=== PATIENT | female | born 1940 | race Caucasian/White ===

== ENCOUNTER 2017-10-16 09:11 | Emergency (ER) | payer OTHER, BC ==
[2017-10-16 09:28] VITALS: TEMP 97.8; BMI 26.5
--- NOTE | 2017-10-16 10:16 | PDOC ---
History of Present Illness - General Chief Complaint: Chest Pain Stated Complaint: PCP SENT Time Seen by Provider: 10/16/17 09:30 - History of Present Illness Initial Comments: 10/16/17 10:13 Patient is a 77 year old female with a PMH of CAD (s/p [place] with stent in LAD), HTN, Aortic valve replacement, HLD and hypothyroidism who presents with resolved chest pain. Chest pain started two days previous and was L sided, non- radiating, 10/10 and non-qualifiable. Patient took her medication (unsure what medication) and states pain resolved in 2-3 hours and has not returned since that time. No prior h/o similar pain and notes she was dancing the evening before the pain started with lots of raised arm movements. Denies any associated dyspnea, lightheadedness, diaphoresis, palpitations. Patient's funeral director's assistant is Dr. Arauz. Patient denies chest pain, headache or dizziness. Patient denies fever, chills, abdominal pain, nausea, vomit, diarrhea or constipation. Patient denies dysuria, frequency, urgency or hematuria. Patient denies sick contacts or recent travel. Allergy: Metronizadole, Penicillin Surgical: Hysterectomy, Aortic Valve replacement, Stent in LAD, Appendicitis Social: denies nicotine, denies alcohol, denies recreational drugs Past History - Past Medical History Allergies/Adverse Reactions: Allergies Allergy/AdvReac Type Severity Reaction Status Date / Time metronidazole [From Flagyl] Allergy Verified 10/16/17 09:21 Penicillins Allergy Verified 10/16/17 09:21 Home Medications: Ambulatory Orders Amlodipine/Valsartan [Exforge 5-160 mg Tablet] 1 tab PO DAILY 08/26/14 Aspirin [ASA -] 81 mg PO DAILY 08/26/14 Clopidogrel Bisulfate [Plavix -] 75 mg PO DAILY 08/26/14 Lansoprazole [Prevacid -] 30 mg PO DAILY 08/26/14 Propylthiouracil 50 mg PO DAILY 08/26/14 Rosuvastatin Calcium [Crestor] 20 mg PO HS 08/26/14 Cardiac Disorders: Yes (Aortic Valve) COPD: No DVT: No HTN: Yes Hypercholesterolemia: Yes - Surgical History Cardiac Surgery: Yes (AORTIC VALVE) Cholecystectomy: Yes - Immunization History Immunization Up to Date: No - Suicide/Smoking/Psychosocial Hx Smoking History: Never smoked Have you smoked in the past 12 months: No Information on smoking cessation initiated: No Hx Alcohol Use: No Drug/Substance Use Hx: No Review of Systems - Review of Systems Constitutional: No: Chills, Fever HEENTM: No: Recent change in vision Respiratory: No: Orthopnea, Shortness of Breath Cardiac (ROS): Yes: Chest Pain (resolved). No: Lightheadedness, Palpitations ABD/GI: No: Constipated, Diarrhea, Nausea, Vomiting : No: Burning, Dysuria *Physical Exam - Vital Signs Last Vital Signs Temp Pulse Resp BP Pulse Ox 97.8 F 67 18 122/84 95 10/16/17 09:21 10/16/17 09:21 10/16/17 09:21 10/16/17 09:21 10/16/17 09:21 - Physical Exam General Appearance: Yes: Nourished, Appropriately Dressed HEENT: positive: EOMI, SONIDO Neck: positive: Trachea midline, Supple Respiratory/Chest: positive: Lungs Clear Cardiovascular: positive: S1, S2. negative: Edema, JVD Gastrointestinal/Abdominal: positive: Normal Bowel Sounds, Soft Musculoskeletal: negative: CVA Tenderness (R), CVA Tenderness (L) Extremity: positive: Normal Capillary Refill, Normal Inspection Integumentary: positive: Normal Color, Dry, Warm ED Treatment Course - LABORATORY CBC & Chemistry Diagram: 10/16/17 10:07 10/16/17 10:07 Medical Decision Making - Medical Decision Making 10/16/17 10:24 77 year old female presents with resolved L sided chest pain. Frontal diagnosis : r/o ACS, costochondritis, pericarditis.Will obtain basic labs, Troponin, ECG. Reassess. 10/16/17 11:35 ECG shows NSR HR 72, no deviations, normal intervals, T wave flattening in V1 with no MELIZA/STD, non-ischemic ECG. T wave flattening not c/w prior ECG. Troponin (-) x1. CBC, CMP unremarkable TSH wnL. At this time patient continues to remain chest pain free > 72 hours. Case d/w Dr. Neff, patient's son - will discharge patient home with return precautions and PMD follow-up. *DC/Admit/Observation/Transfer Diagnosis at time of Disposition: Chest pain - Discharge Dispostion Disposition: HOME Condition at time of disposition: Good Admit: No - Referrals Referrals: Leanne Neff MD [Primary Care Provider] - - Patient Instructions Printed Discharge Instructions: DI for Atypical Chest Pain Additional Instructions: You were evaluated today for chest pain. An ECG, Chest Xray and your labs showed no concerning findings. Please follow up with your primary care doctor in the next 24 hours. Return to the Emergency Department for any new/worsening/concerning symptom. - Post Discharge Activity
[2017-10-16 10:26] LABS: EOS % 3.3 % (0-4.5); HEMATOCRIT 37.6 % (32.4-45.2); HEMOGLOBIN 12.6 GM/dL (10.7-15.3); LYMPH % 32.3 % (8-40); MCH 26.4 pg (25.7-33.7); MCHC 33.4 g/dl (32.0-36.0); MEAN PLT VOLUME 9.5 fl (7.5-11.1); MONO % 7.6 % (3.8-10.2); NEUT % 55.8 % (42.8-82.8); PLATELET COUNT 183 K/MM3 (134-434); RBC 4.76 M/mm3 (3.60-5.2); RDW 14.2 % (11.6-15.6); WHITE BLOOD COUNT 4.2 K/mm3 (4.0-10.0)
[2017-10-16 10:33] LABS: INR 1.07 (0.82-1.09); PROTHROMBIN TIME (PATIENT) 12.1 SEC (9.7-13.0)
[2017-10-16 10:36] LABS: ACTIVATED PTT 26.6 SECONDS (26.9-34.4)
[2017-10-16 10:45] LABS: ALBUMIN 3.9 g/dl (3.4-5.0); ANION GAP 3 (8-16); BILIRUBIN,TOTAL 0.3 mg/dL (0.2-1.0); BLOOD UREA NITROGEN 18 mg/dL (7-18); CALCIUM 8.5 mg/dL (8.5-10.1); CHLORIDE 110 mmol/L (98-107); CO2 30 mmol/L (21-32); CREATININE 0.7 mg/dL (0.55-1.02); GLUCOSE,RANDOM 88 mg/dL (74-106); SGPT/ALT 8 U/L (12-78); SODIUM 143 mmol/L (136-145); TOT PROT 6.5 g/dl (6.4-8.2)
[2017-10-16 10:54] LABS: ALK PHOS 36 U/L (45-117); MAGNESIUM 2.3 mg/dL (1.8-2.4); N-TERMINAL BNP 411.45 pg/ml (5-450); POTASSIUM 4.7 mmol/L (3.5-5.1); SGOT/AST 21 U/L (15-37)
--- NOTE | 2017-10-16 11:29 | PDOC ---
Attending Attestation - Resident Resident Name: Pat Gallardo - ED Attending Attestation I have performed the following: I have examined & evaluated the patient, The case was reviewed & discussed with the resident, I agree w/resident's findings & plan, Exceptions are as noted - HPI HPI: 10/16/17 11:29 Ms Neff is a 77 yo F who presents to the ER with a complaint of chest pain which began s/p dancing and extending her arms She was sent to the ER by her son for labs Pt states her pain began after dancing Pain is worse with palpation of the chest wall No shortness of breath no exertional symptoms No nausea or diaphoresis - Physicial Exam PE: 10/16/17 11:29 GENERAL: The patient is in no acute distress. NECK: Normal range of motion, supple without JVD LUNGS: Breath sounds equal, clear to auscultation bilaterally. No wheezes, and no crackles. HEART:Regular rate and rhythm, normal S1 and S2 without murmur, rub or gallop. ABDOMEN: Soft, nontender EXTREMITIES: Normal range of motion, no edema. NEUROLOGICAL: Cranial nerves II through XII grossly intact. Normal speech. No focal neurological deficits. - Medical Decision Making 10/16/17 11:43 Pt presents to ER with a complaint of chest wall pain Labs sent 10/16/17 11:45 Laboratory Tests 10/16/17 10:07 Creatine Kinase 123 Troponin I < 0.02 B-Natriuretic Peptide 411.45 TSH 0.29 L EKG: Normal sinus rhythm, rate of 72 bpm, axis is normal, intervals are normal, no ST elevations or depressions, T waves upright Pt states she feels well will discharge to home Clinical impression: chest wall pain, initial presentation
[2017-10-16 11:52] VITALS: BP 132/76; PULSE 69
--- NOTE | 2017-10-20 10:37 | EKG ---
Test Reason : Blood Pressure : / mmHG Vent. Rate : 072 BPM Atrial Rate : 072 BPM P-R Int : 156 ms QRS Dur : 076 ms QT Int : 424 ms P-R-T Axes : -09 -15 014 degrees QTc Int : 464 ms NORMAL SINUS RHYTHM NORMAL ECG WHEN COMPARED WITH ECG OF 19-OCT-2015 00:21, NONSPECIFIC T WAVE ABNORMALITY NO LONGER EVIDENT IN LATERAL LEADS Confirmed by TEQUILA WELLS, ROLANDO ([id number]) on 10/20/2017 10:36:43 AM Referred By: Confirmed By:ROLANDO MANDEL MD
== END 2017-10-16 11:52 | disposition home or self-care (01) ==
LOC: JER 09:11
DX: R07.89 Other chest pain (principal); I25.10 Atherosclerotic heart disease of native coronary artery without angina pectoris; I10 Essential (primary) hypertension; Z95.5 Presence of coronary angioplasty implant and graft; I25.2 Old myocardial infarction
CPT/HCPCS: 36415; 71045-TC-FY; 80053; 82550; 83735; 83880; 84443; 84484; 85025; 85610; 85730; 93005; 93010; 99283-25

== ENCOUNTER 2021-01-16 19:03 | Emergency (ER) | payer OTHER, BC ==
[2021-01-16 19:16] VITALS: TEMP 98.2; BMI 29.2
[2021-01-16] MEDS ORDERED: LACTATED RINGERS SOLUTION 1000 ML INFUS.BAG IV ONE (19:59)
[2021-01-16] MEDS ORDERED: FAMOTIDINE 20 MG/50 ML IVPB 20 MG/50 ML MG IVPB ONE ×2 (19:59→20:08)
[2021-01-16] MEDS ORDERED: MAG HYDROX/AL HYDROX/SIMETH 30 ML UNIT-DOSE CUP PO ONE (20:01)
[2021-01-16] MEDS ORDERED: MAG HYDROX/AL HYDROX/SIMETH 30 ML UNIT-DOSE CUP ONE (20:08)
[2021-01-16 20:32] LABS: BASO % 0.8 % (0-2.0); HEMATOCRIT 38.3 % (32.4-45.2); HEMOGLOBIN 12.6 GM/dL (10.7-15.3); LYMPH % 17.6 % (8-40); MCH 26.2 pg (25.7-33.7); MCHC 32.8 g/dl (32.0-36.0); MEAN CELL VOLUME 79.8 fl (80-96); MEAN PLT VOLUME 9.3 fl (7.5-11.1); NEUT % 73.6 % (42.8-82.8); PLATELET COUNT 189 10^3/uL (134-434); RDW 13.1 % (11.6-15.6); WHITE BLOOD COUNT 5.6 K/mm3 (4.0-10.0)
[2021-01-16 20:42] LABS: CHLORIDE 103 mmol/L (98-107); SODIUM 138 mmol/L (136-145)
[2021-01-16 20:44] LABS: CALCIUM 9.1 mg/dL (8.5-10.1)
[2021-01-16 20:45] LABS: ALBUMIN 3.8 g/dl (3.4-5.0); ANION GAP 9 MMOL/L (8-16); BLOOD UREA NITROGEN 21.6 mg/dL (7-18); CO2 26 mmol/L (21-32); GLUCOSE,RANDOM 100 mg/dL (74-106); INR 1.03 (0.83-1.09); LIPASE 159 U/L (73-393); MAGNESIUM 2.3 mg/dL (1.8-2.4); PROTHROMBIN TIME (PATIENT) 12.5 SEC (9.7-13.0)
[2021-01-16] MEDS ORDERED: amLODIPine BESYLATE 5 MG TABLET (FP) PO ONE (20:46)
[2021-01-16 20:47] LABS: EPI CELLS 8 /uL (0-25.1); HYALINE CASTS 1 /uL (0-3.1); URINE APPEARANCE CLEAR; URINE BACTERIA 308 /uL (0-1359); URINE BILIRUBIN NEGATIVE (NEGATIVE); URINE COLOR YELLOW; URINE GLUCOSE (UA) NEGATIVE (NEGATIVE); URINE KETONE NEGATIVE (NEGATIVE); URINE LEUK ESTERASE 2+ (NEGATIVE); URINE NITRITE NEGATIVE (NEGATIVE); URINE PROTEIN TRACE (NEGATIVE); URINE RBC 24 /uL (0-23.9); URINE UROBILINOGEN 0.2 mg/dL (0.2-1.0); URINE WBC 71 /uL (0-25.8)
[2021-01-16 20:47] LABS: ACTIVATED PTT 28.3 SECONDS (25.2-36.5)
[2021-01-16 20:48] LABS: CREATININE 0.8 mg/dL (0.55-1.3); SGOT/AST 17 U/L (15-37); SGPT/ALT 16 U/L (13-61)
[2021-01-16 20:49] LABS: BILIRUBIN,TOTAL 0.3 mg/dL (0.2-1); TOT PROT 6.9 g/dl (6.4-8.2)
[2021-01-16 20:50] LABS: ALK PHOS 42 U/L (45-117)
[2021-01-16] MEDS ORDERED: NITROFURANTOIN MACROCRYSTAL 50 MG CAPSULE (FP) PO SCH (21:45)
[2021-01-16 23:09] VITALS: BP 148/88; PULSE 78
== END 2021-01-16 23:09 | disposition home or self-care (01) ==
LOC: JER 19:03
PROC: 3E033NZ Introduction of Analgesics, Hypnotics, Sedatives into Peripheral Vein, Percutaneous Approach (ICD-10-PCS; principal; 2021-01-16)
DX: R11.0 Nausea (principal); R42 Dizziness and giddiness; I10 Essential (primary) hypertension
CPT/HCPCS: 36415; 70450-TC; 71046-TC-FY; 80053; 81003; 82550; 83690; 83735; 84484; 85025; 85610; 85730; 87086; 93005; 93010; 99285-25